=== PATIENT | male | born 1940 | race Caucasian/White ===

== ENCOUNTER 2024-08-18 11:19 | Outpatient (REF) | payer MEDICARE, SELFPAY ==
--- NOTE | ~2024-08-18 | XR_ITS ---
CLINICAL HISTORY: Chronic cough 2 views soft tissue neck Comparison: None Findings No airway compromise. Normal epiglottis. No prevertebral soft tissue swelling. No unexpected radiopaque foreign body. C3-7 posterior fusion. Advanced degenerative changes in the cervical spine. IMPRESSION: No acute findings. This document has been electronically signed by: Carly Lott DO on 08/20/2024 12:08:52
--- NOTE | ~2024-08-18 | XR_ITS ---
CLINICAL HISTORY: Chronic cough 2 view chest x-ray Comparison: None Findings: Three films were obtained. There are patchy airspace opacities in the left lower lobe. No pleural effusion or pneumothorax. Probable small calcified granuloma in the mediastinum. Normal size heart. The aorta is calcified and uncoiled. There is cervical and lumbar fusion hardware. IMPRESSION: Patchy left lower lobe airspace opacities suggesting inflammatory or infectious process. This document has been electronically signed by: Carly Lott DO on 08/20/2024 12:09:18
--- OUTSIDE RECORDS SUMMARY | 2024-08-18 13:57 | XMS_ITS | Clinical Summary ---
Author Organization [facility] Address [address] [place] [address] Care Team Providers Care Payroll Benefits Clerk Name Role Phone Maine Cordon Primary Care Provider Allergies No known active allergies Medications omeprazole (PriLOSEC) 40 mg capsule Take 40 mg by mouth 2 (two) times a day. Active multivitamin (THERAGRAN) tablet Take 1 tablet by mouth every night. Active cholecalciferol (VITAMIN D3) 1,000 unit tablet Take 1 tablet (1,000 Units total) by mouth 2 times a day. 8 Active calcium carbonate (OS-MITCHEL) 500 mg calcium (1,250 mg) tablet Take 1 tablet (500 mg total) by mouth 2 times a day. 8 Active sildenafiL (VIAGRA) 100 mg tablet Take 100 mg by mouth daily as needed for erectile dysfunction. 1 Active ascorbic acid (VITAMIN C) 500 mg tablet Take 500 mg by mouth every night. Active folic acid (FOLVITE) 1 mg tablet Take 1 mg by mouth every night. Active diclofenac (VOLTAREN) 1% gel Apply topically to the affected area 4 times a day as needed (pain). Active tamsulosin (FLOMAX) 0.4 mg capsule every 24 hours. Active atorvastatin (LIPITOR) 40 mg tablet every 24 hours. Active amLODIPine (NORVASC) 5 mg tablet every 24 hours. Active Active Problems Problem Noted Date Diagnosed Date Complex renal cyst 03/10/2023 Overview (03/10/2023): Had CT 2016 , no biopsy thus far due to intermediate grade lesion Left hydrocele 10/16/2022 Prostate nodule 10/16/2022 Abdominal aortic aneurysm (AAA) 04/01/2022 Tick bite 01/02/2022 Spinal stenosis of lumbar re gion with neurogenic claudication 10/18/2021 Complex renal cyst 10/03/2021 Overview (10/03/2021): Had CT 2017 , no biopsy thus far due to intermediate grade lesion Generalized osteoarthritis 10/03/2021 Gilbert syndrome 10/03/2021 Hyperlipidemia 10/03/2021 Hypertension 10/03/2021 Abdominal aortic aneurysm (AAA) 10/03/2021 Overview (10/03/2021): largest measured diameter was 4.[address] from 2017, ranges from 3.4 - 3.9 cm on US BPH (benign prostatic hyperplasia) 10/03/2021 Calculus of kidney 10/03/2021 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 03/21/2021 Left ureteral stone 03/21/2021 BPH with obstruction/lower urinary tract symptom s 03/05/2021 Nephrolithiasis 03/05/2021 Spondylosis, cervical, with myelopathy 6 Cervical radiculopathy 01/17/2016 Lumbar stenosis with neurogenic claudication 09/2015 Avascular necrosis of bone of left hip 6 Gait instability Ganglion Resolved Problems Problem Noted Date Diagnosed Date Resolved Date Pain of left hip 12/31/2015 03/11/2022 Neck pain 11/28/2015 03/11/2022 Lower back pain 11/28/2015 03/11/2022 Family History Medical History Relation Name Comments Heart disease Brother Hypertension Brother Other Father Family History of cardiac disorder /Family History of hypertension Other Mother Family History of cardiac disorder /Family History of hypertension Hypertension Sister Relation Name Status Comments Brother Alive Father Mother Sister Alive Social History Tobacco Use Types Packs/Day Years Used Date Smoking Tobacco: Former Cigarettes 1 25 1 6 - 1980 Smokeless Tobacco: Never Alcohol Use Standard Drinks/Week Comments Yes 14 (1 standard drink = 0.6 oz pu re alcohol) Sex and Gender Information Value Date Recorded Sex Assigned at Male 07/20/2019 12:07 PM EST Legal Sex Male 7:07 PM EDT Gender Identity Male 07/20/2019 12:07 PM EST Sexual Orientation Straight 03/23/2021 2: 07 PM EDT Last Filed Vital Signs Vital Sign Reading Time Taken Comments Blood Pressure 159/83 01/15/2022 8:35 AM EDT Pulse 80 01/15/2022 8:35 AM EDT Temperature 36.9 ??C (98.4 ??F) 10/20/2021 7:30 AM ED T Respiratory Rate 18 10/20/2021 7:30 AM EDT Oxygen Saturation 97% 10/20/2021 9:00 AM EDT Inhaled Oxygen Concentration - - Weight 78.2 kg (172 lb 6.4 oz) 01/15/2022 8:35 A M EDT Height 169.5 cm (5' 6.73 ) 01/15/2022 8:35 AM ED T Body Mass Index 27.22 01/15/2022 8:35 AM EDT Plan of Treatment Health Maintenance Due Date Last Done Comments RSV Vaccine (60+ years old and patients) (1 - 1-dose 75+ series) 01/21/2016 Basic Metabolic Panel 10/20/2022 10/20/2021 , 10/19/2021, 10/04/2021, Additional history exists COVID-19 Vaccine ( season) 2024 02/06/2022, 04/04/2021, 08/08/2020, Additional history exists Influenza Vaccine (#1) 2024 , 03/20/2021, 03/13/2021, Additional history exists Alcohol/Substance Use Screening 06/15/2024 Depression Screening and Follow-Up 06/15/2024 Health Care Proxy Review 06/15/2024 Social Drivers of Health Annual Screening 06/15/2024 DTaP,Tdap,and Td Vaccines (2 - Td or Tdap) 07/09/2031 07/09/2021 Pneumococcal Vaccine: 50+ Years Completed 06/15/2016, 03/24/2009 Zoster Vaccines Completed 02/18/2019, 09/10/2018 Hepatitis B Vaccines Aged Out No long er eligible based on patient's age to complete this topic Medical Devices Implanted Type Area C Architect Device Identifier Shelf Expiration Date Model / Serial / Lot Shell Acetabular Seneca Sector Gription 60mm Seneca - [id number] Implanted:Qty: 1 on 07/30/2017 by Hemant Varma MD at [facility] Implant Left: Hip DEPUY 05/14/2027 0 / / [id number] Liner Acetabular Neutral [id number] Seneca Altrx - [id number] Implanted:Qty: 1 on 07/30/2017 by Hemant Varma MD at [facility] Implant Left: Hip DEPUY 04/14/2022 0 / / [id number] Stem Femoral / Taper High Offset Porocoat Size 8 [place] - [id number] Implanted:Qty: 1 on 07/30/2017 by Hemant Varma MD at [facility] Implant Left: Hip DEPUY 02/12/2027 [id number] 0 / / [id number] Head Femoral /14 Taper Delta Articul/Alex Ceramic 36mmxplus 8mm Biolox Seneca - [id number] Implanted:Qty: 1 on 07/30/2017 by Hemant Varma MD at [facility] Implant Left: Hip DEPUY 05/14/2022 0 / / [id number] Modulus Xl, Implanted:Qty: 1 on 10/18/2021 by Rashad Evangelista MD at [facility] Implant N/A: Back [employer] 03/25/2024 [id number] / / [id number] Screw Acetabular Cancellous Dome Stainless Steel 6.9day10pe Seneca - [id number] Implanted:Qty: 1 on 07/30/2017 by Hemant Varma MD at [facility] Screw Left: Hip DEPUY 05/14/2027 0 / / [id number] Screw Acetabular Cancellous Dome Stainless Steel [id number] Seneca - [id number] Implanted:Qty: 1 on 07/30/2017 by Hemant Varma MD at [facility] Screw Left: Hip DEPUY 03/14/2027 0 / / [id number] Screw Locking 5.5mm Open Tulip Reline - [id number] Implanted:Qty: 6 on 10/18/2021 by Rashad Evangelista MD at [facility] [employer] [id number] / / Screw Poly 2c 6.0dwk95bp Red Reline Mas - [id number] Implanted:Qty: 6 on 10/18/2021 by Rashad Evangelista MD at [facility] [employer] [id number] / / Matrix Graft Subsititute 10cc Osteocel Plus - [id number] - [id number] Implanted:Qty: 1 on 10/18/2021 by Rashad Evangelista MD at [facility] Tissue N/A: Back [employer] 06/13/2025 [id number] / [id number] / Putty Demineralized Bone Matrix 10cc Dbx - [id number] - [id number] Implanted:Qty: 1 on 10/18/2021 by Rashad Evangelista MD at [facility] Tissue N/A: Back MUSCULOSKELETAL TRANSPLANT FND 05/21/2023 [id number] / [id number] / Modulus Xl Implanted:Qty: 1 on 10/18/2021 by Rashad Evangelista MD at [facility] N/A: Back [employer] 02/27/2026 [id number] / / [id number] 5.5 X 95 [place] Implanted:Qty: 2 on 10/18/2021 by Rashad Evangelista MD at [facility] [employer] [facility] [id number] / / Procedures * Due to [place] [employer] law, this organization might not be sharing negative HIV tests. Procedure Name Priority Date/Time Associated Diagnosis Comments BASIC METABOLIC PANEL Routine 10/20/2021 4:11 AM EDT from Last 3 Months or Most Recently Relevant to Health Maintenance Results * Due to [place] [employer]ine [employer] law, this organization might not be sharing negative HIV tests. * (ABNORMAL) Basic Metabolic Panel (10/20/2021 4:11 AM EDT) NA 140 135 - 145 mmol/L 10/20/2021 5:26 AM EDT [facility] K 4.2 3.5 - 5.3 mmol/L 10/20/2021 5:26 AM EDT [facility] Cl 103 97 - 110 mmol/L 10/20/2021 5:26 AM EDT [facility] CO2 31 24 - 32 mmol/L 10/20/2021 5:26 AM EDT [facility] BUN 12 7 - 23 mg/dL 10/20/2021 5:26 AM EDT [facility] Creatinine 0.86 0.60 - 1.30 mg/dL 10/20/2021 5:26 AM EDT [facility] Glucose 95 70 - 99 mg/dL 10/20/2021 5:26 AM EDT [facility] Calcium 8.6(L) 8.7 - 10.7 mg/dL 10/20/2021 5:26 AM T [facility] Anion Gap 6 5 - 15 10/20/2021 5:26 AM [facility] eGFR 88(L) >=90 mL/min/1. 73m2 10/20/2021 5:26 AM T [facility] Comment: Estimated Glomerular Filtration Rate (GFR) calculated using the CKD-EPI refit equation. The different stages of CKD form a continuum. The stages of CKD are classified as follows : Stage 1: Kidney damage with normal or increased GFR (>90 mL/min/1.73 m2) Stage 2: Mild reduction in GFR (60-89 mL/min/1.73 m2) Stage 3a: Moderate reduction in GFR (45-59 mL/min/1.73 m2) Stage 3b: Moderate reduction in GFR (30-44 mL/min/1.73 m2) Stage 4: Severe reduction in GFR (15-29 mL/min/1.73 m2) Stage 5: Kidney failure (GFR < 15 mL/min/1.73 m2 or dialysis) Blood Structure of peripheral vein / Unknown Venipuncture / Unknown 10/20/2021 4:11 AM EDT 10/20/2021 4:52 AM EDT Rashad Evangelista MD LAB BLOOD ORDERABLES Final Result [facility] [address] [place] [address], [place] from Last 3 Months or Most Recently Relevant to Health Maintenance Insurance BCBS MCR REPLACE PPO Advance Directives Documents on File Type Date Recorded Patient Home Decorator Expl anation Health Care Proxy 03/09/2017 6:04 AM 4 Advance Directive 03/21/2016 12:00 AM V Health Care Proxy 12/21/2013 12:00 AM Healt h Care Proxy * Full Code (Latest Code Status on File) Date Activated Date Inactivated Comments 10/18/2021 2:04 PM 10/20/2021 2:45 PM * Full Code Date Activated Date Inactivated Comments 10/18/2021 5:37 AM 10/18/2021 2:04 PM * Presumed Full Code Date Activated Date Inactivated Comments 07/30/2017 11:23 AM 08/01/2017 1:25 PM * Presumed Full Code Date Activated Date Inactivated Comments 07/30/2017 5:38 AM 07/30/2017 11:23 AM Healthcare Agents on File Name Relationship Healthcare Agent Relationshi p Communication Margaux [facility] Spouse Health Care Agent Care Teams Payroll Benefits Clerk Relationship Specialty Start Date End Date Maine Cordon [address] [id number] PCP - General Internal Medicine 03/04/22
--- OUTSIDE RECORDS SUMMARY | 2024-08-18 13:57 | XMS_ITS | Patient Health Record ---
Author Organization [facility] Address [address] [place] [address] Care Team Providers Care Band Cutting Machine Operator Name Role Phone Tom Arreola Unavailable [phone] Allergies No Known Allergies Reason For Referral No Information Medications Medication SIG (Take, Route, Fr equency, Duration) Notes Start Date End Date Status Lipitor 40 MG 1 tablet Orally Once a day for 30 day(s) Active Flomax 0.4 MG 1 capsule 30 minutes after the same meal each day Orally Once a day for 30 day(s) Active PriLOSEC 20 MG 1 capsule 30 minutes before morning meal Orally Once a day for 30 day(s) Active Norvasc 5 MG 1 tablet Orally Once a day for 30 day(s) Active Social History Tobacco Use: Social History Observation Description Date Details (start date - stop date) Never Smoker NA - NA Tobacco Use/Smoking Question Answer Notes Patient is a: never smoker Plan Of Treatment No Information Insurance Providers Payer Name Payer Address Payer Phone Subscriber Number Group Number Insured Name Patient Relationship to Insured Coverage Start Date Coverage End Date Medicare Hmo/O [place] [id number] [address] [place] [address] [phone] [id number] Cristopher Brasher Self - patient is the insured 9 Medical (General) History Surgical History Surgery Date(Month/Year) back surgery 10/2021
--- OUTSIDE RECORDS SUMMARY | 2024-08-18 13:57 | XMS_ITS | Continuity of Care Document ---
Author Organization [facility] Address [address] [place] [address]- Care Team Providers Care Primary Special Education Teacher Name Role Phone Adalberto Jones DO Primary Care Physician Encounter [facility] Date(s): 06/23/24 - 07/23/24 [facility] Adult [address] [place] [address]- Attending Physician: Admtr, Ar8 Admitting Physician: Admtr, ArThomas Referring Physician: Admtr, Ar8 Encounter Type: Triage Allergies, Adverse Reactions, Alerts No Known Allergies Immunizations Given and Recorded Vaccine Date Status Refusal Reason SARS-CoV-2 mRNA ([id number]) vax 02/06/22 Recorded tetanus/diphtheria/pertussis, acel(Tdap) 07/09/21 Recorded SARS-CoV-2 (COVID-19) mRNA BNT-162b2 vac 04/04/21 Recorded SARS-CoV-2 (COVID-19) mRNA BNT-162b2 vac 08/08/20 Recorded SARS-CoV-2 (COVID-19) mRNA BNT-162b2 vac 07/18/20 Recorded influenza virus vaccine, inactivated 1 03/20/21 Gi goyo influenza virus vaccine, inactivated 03/07/20 Alfredo rded Influenza Virus Vaccine (oldterm) 03/29/20 Recorde d zoster vaccine, inactivated 02/18/19 Recorded zoster vaccine, inactivated 09/10/18 Recorded pneumococcal 13-valent vaccine 06/15/16 Recorded pneumococcal 23-valent vaccine 03/24/09 Recorded 1Result Comment: [id number] Medications amLODIPine 5 mg oral tablet See Instructions, TAKE 1 TABLET DAILY, # 90 tablet, 3 Refills, Maintenance, 04/11/24 10:13:00 AM EDT, [facility], 172, cm, 04/11/24 9:44:00 EDT, Height Start Date: 04/11/24 Status: Ordered Quantity: 90.0 Unit: tablet Repeat number: 4 atorvastatin 40 mg oral tablet See Instructions, TAKE 1 TABLET DAILY, # 90 tablet, 3 Refills, Maintenance, 04/11/24 10:13:00 AM EDT, [facility], 172, cm, 04/11/24 9:44:00 EDT, Height Start Date: 04/11/24 Status: Ordered Quantity: 90.0 Unit: tablet Repeat number: 4 Citracal Tablet Refills 0, Maintenance, 11/12/18 10:12:30 AM EDT Start Date: 11/12/18 Status: Ordered Repeat number: 1 diclofenac 1% topical gel See Instructions, APPLY up to 4 grams TOPICALLY FOUR TIMES A DAY NEEDED FOR PAIN, # 4 each, 11 Refills, Maintenance, 06/23/24 10:16:00 AM EST, [facility]/pharmacy #[id number], 8 tubes each, APPLY up to 4 grams TOPICALLY FOUR TIMES A DAY NEEDED FOR PAIN, 172, cm, 06/23/24 10:01:00 EST, Height Start Date: 06/23/24 Status: Ordered Quantity: 4.0 Unit: each Repeat number: 12 diclofenac sodium 75 mg oral delayed release tablet 1 tablet = 75 mg, By Mouth, 2 times a day, PRN as needed for arthritis, with food, # 180 tablet, 1 Refills, Maintenance, 03/30/23 12:25:00 PM EDT, EC Tablet, [facility]/pharmacy #[id number], 172, cm, 03/30/23 12:16:00 EDT, Height Start Date: 03/30/23 Status: Ordered Quantity: 180.0 Unit: tablet Repeat number: 2 famotidine 40 mg oral tablet 1 tablet = 40 mg, By Mouth, Daily, # 90 tablet, 3 Refills, Maintenance, 06/23/24 10:16:00 AM EST, Tablet, [facility], Partial fill upon patient request if the prescription is fora schedule II opioid drug., 172, cm, 06/23/24 10:01:00 EST, Height Start Date: 06/23/24 Status: Ordered Quantity: 90.0 Unit: tablet Repeat number: 4 Folic Acid Daily, 0 Refills, Maintenance, 10/21/16 10:24:58 AM EDT Start Date: 10/21/16 Status: Ordered Repeat number: 1 Multivitamin Daily, 0 Refills, Maintenance, 05/05/16 11:16:09 AM EST Start Date: 05/05/16 Status: Ordered Repeat number: 1 omeprazole 40 mg oral enteric coated capsule 2 capsule, By Mouth, Daily, # 180 capsule, 3 Refills, Maintenance, 03/30/23 12:27:00 PM EDT, [facility]/pharmacy #[id number], 172, cm, 03/30/23 12:16:00 EDT, Height Start Date: 03/30/23 Status: Ordered Quantity: 180.0 Unit: capsule Repeat number: 4 tamsulosin 0.4 mg oral capsule 1, capsule, By Mouth, Daily, # 90 capsule, Refills 3, Tot. Refills 3, Maintenance, 04/11/24 10:12:00 AM EDT, Route to Pharmacy Electronically, [facility], 172, cm, 04/11/24 9:44:00 EDT, Height Start Date: 04/11/24 Status: Ordered Quantity: 90.0 Unit: capsule Repeat number: 4 Vitamin D3 By Mouth, 0 Refills, Maintenance, 05/05/16 11:17:13 AM EST Start Date: 05/05/16 Status: Ordered Repeat number: 1 Problem List Condition Confirmation Course Effective Dates Status H ealth Status Informant AAA (abdominal aortic aneurysm) - infrarenal, annual US monitoring 1 Confirmed Active BPH (benign prostatic hyperplasia) Confirmed Active Hearing loss sensory, bilateral Confirmed Active Complex renal cyst - Right, Radiologic grade IIF - US every 6-12 months to monitor 2 Confirmed Active Generalized osteoarthritis - lumbar, cervical, hips, knees Confirmed Active Essential hypertension Confirmed Active Chronic GERD Confirmed Active Gilbert syndrome Confirmed Active History of kidney stones Confirmed Active Nephrolithiasis Confirmed Active Mixed hyperlipidemia Confirmed Active Osteoarthritis Confirmed Active Medicare annual wellness visit, subsequent Confirmed Active Peripheral arterial disease Confirmed Active Lumbar foraminal stenosis Confirmed Active Wheezing Confirmed Active 1largest measured diameter was 4.[address] from 2017, ranges from 3.4 - 3.9 cm on US 2Had CT 2017 , no biopsy thus far due to intermediate grade lesion Social History Social History Type Response Tobacco Tobacco use times pe r day: quit age 41 1ppd. 25 Number of years:. Total pack years: 25. Sex Sex Representation Male (finding) Implantable Device List Procedure Provider Procedure Date Device Type Site Repair Hernia Inguinal Bilateral Open Jag HADDAD, Shilo Dickson 08/15/19 Unknown Groin Left Device Identifier Serial Number Lot or Batch Number Manufacturing Date Expiration Date Distinct Identification Code MRI Safety Implantable Status Assigning Authority Unknown Unknown Unknown Unknown 06/11/23 Unknown Unknown Active Un known Procedure Provider Procedure Date Device Type Site Repair Hernia Inguinal Laparoscopic Chapis Cm MD, Savana Moses 08/15/19 Unknown Groin Righ t Device Identifier Serial Number Lot or Batch Number Manufacturing Date Expiration Date Distinct Identification Code MRI Safety Implantable Status Assigning Authority Unknown Unknown [id number] Unknown 06/11/23 Unknown Unknown Active Unknown Cardiology * Event Display: Non BH Cardiovascular Results Authored Date: Laboratory * Event Display: Non BH Lab Results Authored Date: * Event Display: Non BH Lab Results Authored Date: Radiology * Event Display: IR Special Procedures, Non-BH Authored Date: * Event Display: X-Ray Spine, Non- BH Authored Date: * Event Display: X-Ray Spine, Non- BH Authored Date: * Event Display: Ultrasound Lower Extremity, Non-BH Authored Date: * Event Display: X-Ray Hip/Groin, Non- BH Authored Date: * Event Display: IR Special Procedures, Non-BH Authored Date: * Event Display: IR Special Procedures, Non-BH Authored Date: Patient Care team information Care Team Personnel Name: Adalberto Jones DO Position: [facility] Physician - Primary Care Member Role: PCP Address: [address] [place] [address]- Telecom: Name: Araceli Palafox RN Position: [facility] Hospital Lead Atg Developer Member Role: Primary Care Nurse Care Team Related Persons Name: AKASH LARSON Insurance Providers Guarantor name: [facility] [place] Information #: 1 Payer: [employer] Member Number: NA Policy Number: NA Group Number: NA
--- OUTSIDE RECORDS SUMMARY | 2024-08-18 13:57 | XMS_ITS | Clinical Summary ---
Author Organization [facility] Address [address] [place] [address] Care Team Providers Care Records Coordinator Name Role Phone Garth Bolivar MD Primary Care Provider [phone] Allergies No known active allergies Medications amLODIPine (NORVASC) 5 mg tablet Norvasc 5 MG Oral Tablet TAKE 1 TABLET DAILY Refills: 0 Active Active ascorbic acid (VITAMIN C) 500 mg tablet Take 1 tablet (500 mg total) by mouth. 8 Active aspirin 81 mg EC tablet Take 1 tablet (81 mg total) by mouth. 8 Active atorvastatin (LIPITOR) 40 mg tablet Lipitor 40 MG Oral Tablet TAKE 1 TABLET DAILY. Refills: 0 Active Active calcium carbonate (OS-MITCHEL) 1250 mg (500 mg elemental calcium) chewable tablet Take 500 mg by mouth. 8 Active cholecalciferol (VITAMIN D-3) 25 mcg (1,000 unit) tablet Take 1,000 Units by mouth. 8 Active folic acid (FOLVITE) 1 mg tablet Take 1 tablet (1 mg total) by mouth. 8 Active multivitamin (Multiple Vitamins) tablet Take 1 tablet by mouth daily. Active omeprazole (PriLOSEC) [address] capsule PriLOSEC 40 MG CPDR TAKE 1 CAPSULE DAILY. Quantity: 30; Refills: 0 Active Active sildenafiL (VIAGRA) 100 mg tablet Take 1 tablet (100 mg total) by mouth as needed. 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 03/21/2021 Renal calculus or stone 03/05/2021 BPH with obstruction/lower urinary tract symptom s 03/05/2021 Medical History Medical History Date Comments Kidney stone DX:Kidney stone Benign prostatic hyperplasia DX: Benign prostatic hyperplasia Social History Tobacco Use Types Packs/Day Years Used Date Smoking Tobacco: Former Smokeless Tobacco: Never Alcohol Use Standard Drinks/Week Comments Yes 0 (1 standard drink = 0.6 oz pur e alcohol) Sex and Gender Information Value Date Recorded Sex Assigned at Not on file Legal Sex Male 9:42 PM EST Gender Identity Not on file Sexual Orientation Not on file Obstetrics History Last Filed Vital Signs Vital Sign Reading Time Taken Comments Blood Pressure 118/80 10/16/2022 10:17 AM EDT Sitting Right arm Pulse - - Temperature - - Respiratory Rate - - Oxygen Saturation - - Inhaled Oxygen Concentration - - Weight 79.4 kg (175 lb) 10/16/2022 10:1 7 AM EDT Height 177.8 cm (5' 10 ) 10/16/2022 10: 17 AM EDT Body Mass Index 25.11 10/16/2022 10:17 AM EDT Plan of Treatment Health Maintenance Due Date Last Done Comments DTaP,Tdap,and Td Vaccines (1 - Tdap) 01/21/1960 Pneumococcal Vaccine: 50+ Ye ars (1 of 1 - PCV) 1991 Zoster Vaccines (1 of 2) 1991 RSV Immunization Patients 60 + Years Old (1 - 1-dose 75+ series) 01/21/2016 Cholesterol Screening (Lipid Panel) 05/23/2022 Depression Screening 05/23/2022 Falls Risk Assessment 05/23/2022 Social Influencers of Health Screening 05/23/2022 COVID-19 Vaccine ( - 2023-2 5 season) 2024 Influenza Vaccine (#1) 2024 HIB Vaccines Aged Out No longer eligi ble based on patient's age to complete this topic HPV Vaccines Aged Out No longer eligi ble based on patient's age to complete this topic Hepatitis A Vaccines Aged Out No long er eligible based on patient's age to complete this topic Hepatitis B Vaccines Aged Out No long er eligible based on patient's age to complete this topic IPV Vaccines Aged Out No longer eligi ble based on patient's age to complete this topic MMR Vaccines Aged Out No longer eligi ble based on patient's age to complete this topic Meningococcal ACWY Vaccine Aged Out N o longer eligible based on patient's age to complete this topic Meningococcal B Vacine Aged Out No lo nger eligible based on patient's age to complete this topic RSV Immunization Patients Un dawna 20 months Aged Out No longer eligible b ased on patient's age to complete this topic Varicella Vaccines Aged Out No longer eligible based on patient's age to complete this topic Care Teams Records Coordinator Relationship Specialty Start Date End Date Garth Bolivar MD [address] [place] [address] PCP - General Internal Medicine 09/23/21
--- OUTSIDE RECORDS SUMMARY | 2024-08-18 13:57 | XMS_ITS | Clinical Summary ---
Author Organization [facility] Address [address] [place] [address] Care Team Providers Care Car Oiler Name Role Phone Osmel PULIDO MD, Garth Moses Primary Care Provider [phone] Allergies No known active allergies Medications Medication Sig Dispensed Refills Start Date End Date Status amLODIPine (NORVASC) tablet 5 mg Norvasc 5 MG Oral Tablet TAKE 1 TABLET DAILY Refills: 0 Active 0 Active aspirin 81 MG EC tablet Take 1 tablet (81 mg total) by mouth. 0 07/31/2017 Active ascorbic acid (VITAMIN C) 500 MG tablet Take 1 tablet (500 mg total) by mouth. 0 08/01/2017 Active atorvastatin (LIPITOR) tablet 40 mg Lipitor 40 MG Oral Tablet TAKE 1 TABLET DAILY. Refills: 0 Active 0 Active calcium carbonate (OS-MITCHEL) 1250 (500 Ca) MG tablet Take 500 mg by mouth. 0 08/01/2017 Active Cholecalciferol 25 MCG (1000 UT) tablet Take 1,000 Units by mouth. 0 08/01/2017 Active folic acid (FOLVITE) tablet 1 mg Take 1 tablet (1 mg total) by mouth. 0 08/02/2017 Active Multiple Vitamin (Multi-Vitamin) tablet Take 1 tablet by mouth daily. 0 Active omeprazole (PriLOSEC) 40 MG capsule PriLOSEC 40 MG CPDR TAKE 1 CAPSULE DAILY. 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 03/21/2021 Renal calculus or stone 03/05/2021 BPH with obstruction/lower urinary tract symptom s 03/05/2021 Prostate cancer screening 03/05/2021 Social History Tobacco Use Types Packs/Day Years Used Date Smoking Tobacco: Former Smokeless Tobacco: Never Tobacco Cessation:Counseling Given: Not Answered Alcohol Use Standard Drinks/Week Comments Yes 0 (1 standard drink = 0.6 oz pur e alcohol) Sex and Gender Information Value Date Recorded Sex Assigned at Male 03/21/2021 10:02 AM EDT Gender Identity Not on file Sexual Orientation Not on file Job Start Date Occupation Industry Not on file Not on file Not on file Last Filed Vital Signs Vital Sign Reading Time Taken Comments Blood Pressure 118/80 10/16/2022 10:17 AM EDT Pulse - - Temperature - - Respiratory Rate - - Oxygen Saturation - - Inhaled Oxygen Concentration - - Weight 79.4 kg (175 lb) 10/16/2022 10:17 AM EDT Height 177.8 cm (5' 10 ) 10/16/2022 10:17 AM EDT Body Mass Index 25.11 10/16/2022 10:17 AM EDT Plan of Treatment Health Maintenance Due Date Last Done Comments Depression Screening 1953 Preventative Health Evaluation 1959 DTap / Tdap / Td (1 - Tdap) 01/21/1960 Fall Risk Assessment 2006 RSV Adult > 60+ Yrs or (1 - 1-dose 75+ series) 01/21/2016 COVID-19 Vaccine ( season) 2024 02/06/2022, 04/04/2021, 08/08/2020, Additional history exists Influenza Vaccine (#1) 2024 03/20/2021, 2019 Pneumococcal Vaccine Completed 06/15/2016, 03/24/20 09 Shingrix-Zoster Vaccine Completed 02/18/2019, 09/10 Hepatitis B Vaccines Aged Out No long er eligible based on patient's age to complete this topic RSV Ped < 20 months Aged Out No longe r eligible based on patient's age to complete this topic Care Teams Car Oiler Relationship Specialty Start Date End Date Garth Bolivar II, MD [address] [place] [address] PCP - General Internal Medicine 09/23/21
--- OUTSIDE RECORDS SUMMARY | 2024-08-18 13:57 | XMS_ITS | Referral Summary ---
Author Organization [facility] Address [address] [place] [address] Care Team Providers Care Slackman Name Role Phone Maine Cordon Primary Care Provider [phone] Allergies No known active allergies Medications omeprazole [...] 11/28/2015 03/11/2022 Lower back pain 11/28/2015 03/11/2022 Social History Tobacco Use Types Packs/Day Years Used Date Smoking Tobacco: Former Cigarettes 1 25 1 956 - 1981 Smokeless Tobacco: Never Alcohol Use Standard Drinks/Week Comments Yes 14 (1 standard drink = 0.6 oz pu re alcohol) Sex and Gender Information Value Date Recorded Sex Assigned at Male 07/20/2019 12:07 PM EST Legal Sex Male 7:07 PM EDT Gender Identity Male 07/20/2019 12:07 PM EST Sexual Orientation Straight 03/23/2021 2 :07 PM EDT Last Filed Vital Signs Vital [...] 01/15/2022 8:35 AM EDT Plan of Treatment Not on file Medical Devices Implanted Type Area Supervisor Char House Device Identifier Shelf Expiration Date Model / Serial / Lot Shell Acetabular [place] Sector Gription 60mm [place] - [id number] Implanted:Qty: 1 on 07/30/2017 by Hemant Varma MD at [facility] Implant Left: Hip DEPUY 05/14/2027 0 / / [id number] Liner Acetabular Neutral [id number] [place] Altrx - [id number] Implanted:Qty: 1 on 07/30/2017 by Hemant Varma MD at [facility] Implant Left: Hip DEPUY 04/14/2022 0 / / [id number] Stem Femoral 05/28 Taper High Offset Porocoat Size 8 [place] - [id number] Implanted:Qty: 1 on 07/30/2017 by Hemant Varma MD at [facility] Implant Left: Hip DEPUY 02/12/2027 1570-04-29 0 / / [id number] Head Femoral 05/28 Taper Delta Articul/Alex Ceramic 36mmxplus 8mm Biolox [place] - [id number] Implanted:Qty: 1 on 07/30/2017 by Hemant Varma MD at [facility] Implant Left: Hip DEPUY 05/14/2022 0 / / [id number] Modulus Xl, Implanted:Qty: 1 on 10/18/2021 by Rashad Evangelista MD at [facility] Implant N/A: Back [employer] 03/25/2024 [id number] / / [id number] Screw Acetabular Cancellous Dome Stainless Steel 6.1wbl68tp [place] - [id number] Implanted:Qty: 1 on 07/30/2017 by Hemant Varma MD at [facility] Screw Left: Hip DEPUY 05/14/2027 0 / / [id number] Screw Acetabular Cancellous Dome Stainless Steel 6.1kau56do [place] - [id number] Implanted:Qty: 1 on 07/30/2017 by Hemant Varma MD at [facility] Screw Left: Hip DEPUY 03/14/2027 0 / / [id number] Screw Locking 5.5mm Open Tulip Reline - [id number] Implanted:Qty: 6 on 10/18/2021 by Rashad Evangelista MD at [facility] [employer] [id number] / / Screw Poly 2c 6.6ref88yc Red Reline Mas - [id number] Implanted:Qty: 6 on 10/18/2021 by Rashad Evangelista MD at [facility] [employer] [id number] / / Matrix Graft Subsititute 10cc Osteocel Plus - [id number] - [id number] Implanted:Qty: 1 on 10/18/2021 by Rashad Evangelista MD at [facility] Tissue N/A: Back [employer] 06/13/2025 [id number] / [id number] / Putty Demineralized Bone Matrix 10cc Dbx - [id number] - [id number] Implanted:Qty: 1 on 10/18/2021 by Rashad Evangelista MD at [facility] Tissue N/A: Back MUSCULOSKELETAL TRANSPLANT FND 05/21/2023 [id number] / [id number] / Modulus Xl Implanted:Qty: 1 on 10/18/2021 by Rashad Evangelista MD at [facility] N/A: Back [employer] 02/27/2026 [id number] / / [id number] 5.5 X 95 [place] Implanted:Qty: 2 on 10/18/2021 by Rashad Evangelista MD at [facility] [employer] [id number] / / Procedures * Due to [place] state law, this organization might not be sharing negative HIV tests. Procedure Name Priority Date/Time Associated Diagnosis Comments BASIC METABOLIC PANEL Routine 10/20/2021 4:11 AM EDT from Last 3 Months or Most Recently Relevant to Health Maintenance Results * Due to [place] state law, this organization might not be sharing negative HIV tests. * (ABNORMAL) Basic Metabolic Panel (10/20/2021 4:11 AM EDT) NA 140 135 - 145 mmol/L 10/20/2021 5:26 AM EDT [facility] K 4.2 3.5 - 5.3 mmol/L 10/20/2021 5:26 AM EDT [facility] Cl 103 97 - 110 mmol/L 10/20/2021 5:26 AM EDT [facility] CO2 31 24 - 32 mmol/L 10/20/2021 5:26 AM EDT [facility] BUN 12 7 - 23 mg/dL 10/20/2021 5:26 AM EDT [facility] Creatinine 0.86 0.60 - 1.30 mg/dL 10/20/2021 5:26 AM EDT [facility] Glucose 95 70 - 99 mg/dL 10/20/2021 5:26 AM EDT [facility] Calcium 8.6(L) 8.7 - 10.7 mg/dL 10/20/2021 5:26 AM EDT [facility] Anion Gap 6 5 - 15 10/20/2021 5:26 AM EDT [facility] eGFR 88(L) >=90 mL/min/1. 73m2 10/20/2021 5:26 AM EDT [facility] Comment: Estimated Glomerular Filtration [...] Evangelista MD LAB BLOOD ORDERABLES Final Result Performing Organization Address City/State/[facility] Co de Phone Number [facility] [address] [place] [address], [place] from Last 3 Months or Most Recently Relevant to Health Maintenance Insurance [employer] MCR REPLACE PPO Advance Directives Documents on File Type Date Recorded Patient Pastry Decorator Expl anation Health Care Proxy 03/09/2017 [...] Relationship Healthcare Agent Relationshi p Communication [facility] [place]ouse Health Care Agent Care Teams Slackman Relationship Specialty Start Date End Date Maine Cordon [address] [place] [address] PCP - General Internal Medicine 03/04/22
== END 2024-08-18 11:20 | disposition home or self-care (01) ==
LOC: HO.XRAY 11:19
PROVIDERS: PCP Family Medicine; Visit Provider Otolaryngology
DX: R05.3 Chronic cough (principal)
CPT/HCPCS: 70360; 71046

== ENCOUNTER → 2024-08-18 11:30 | Outpatient (BNV) | payer MEDICARE, SELFPAY | PROVIDERS: PCP Family Medicine; Visit Provider Radiology Diagnostic Radiology | DX: R05.3 Chronic cough (principal) | CPT/HCPCS: 70360; 71046 ==